=== PATIENT | female | born 1970 | race Hispanic/Latino ===

== ENCOUNTER → 2025-03-09 | Outpatient (CLI) | payer OTHER, SELFPAY ==
[~2025-03-09] MED LIST: ASPI-1005 PO; METO50TA9 PO
--- NOTE | 2025-03-10 06:23 | HMCIMG ---
EXAMINATION: ULTRASOUND OF THE RETROPERITONEUM. CLINICAL HISTORY: Urinary crystals. COMPARISON: None. TECHNIQUE: Real-time grayscale ultrasound images of the kidneys. FINDINGS: The kidneys are normal in caliber, the right kidney measures 10.8 x 4.0 x 4.2 cm and the left kidney measures 9.6 x 5.3 x 4.1 cm in its craniocaudal, AP, and transverse dimensions respectively. There is normal renal cortical thickness, and cortical echogenicity. There is no renal calculus or hydronephrosis. The urinary bladder is minimally distended with normal wall thickness. There are no calculi in the urinary bladder. IMPRESSION: No significant abnormality. /Solo
== END | disposition home or self-care (01) ==
LOC: RAH 11:00
PROVIDERS: ATTEND Student in an Organized Health Care Education/Training Program
DX: R82.998 Other abnormal findings in urine (principal)
CPT/HCPCS: 76770

== ENCOUNTER 2025-05-14 05:37 | Day surgery (SDC) | payer SELFPAY ==
[~2025-05-14] VITALS: Ht 154.9 cm; Wt 128.8 kg
[2025-05-14] VITALS (10 sets, daily range): BP systolic 105–123; BP diastolic 62–71; PULSE 52–64; RESP 14–17; TEMP 97.3–98.4
[~2025-05-14 05:37] MED LIST changes: +BUPR300T53 PO; +LOSA25TA41 PO; +METO-408 PO; -METO50TA9 PO; +SEMA1PEN3 SQ; +TRAZ-185 PO; +TYLENOL ARTHRITIS PO
[2025-05-14] MEDS ORDERED: CALC625T PO (06:48)
[2025-05-14] MEDS ORDERED: LIDOCAINE HCL 1% 20 ML VIAL ONE (07:18)
--- NOTE | 2025-05-14 08:45 | NUR ---
Full and complete discharge instructions given to Patient and Family both verbally and in writing. Explained GI procedure precautions and follow up. All questions answered. PIV removed with catheter tip intact. Family at bedside appearing supportive. W/C to POV with Family to home
[2025-05-14] MEDS: 0.9%NACL 1000ML 1,000 ML IV ONE (09:56)
== END 2025-05-14 08:40 | disposition home or self-care (01) ==
LOC: ENDO 05:37 → DAH 05:37 → ENDO 08:40
PROVIDERS: ATTEND Internal Medicine Gastroenterology
DX: K92.1 Melena (principal); K29.70 Gastritis, unspecified, without bleeding; K57.30 Diverticulosis of large intestine without perforation or abscess without bleeding; B96.81 Helicobacter pylori [H. pylori] as the cause of diseases classified elsewhere; R12 Heartburn; R14.2 Eructation; I10 Essential (primary) hypertension; E66.9 Obesity, unspecified; Z68.43 Body mass index [BMI] 50.0-59.9, adult; Z86.0100 Personal history of colon polyps, unspecified; Z79.82 Long term (current) use of aspirin; Z79.899 Other long term (current) drug therapy
CPT/HCPCS: 43239; 45378; J7030 ×2; J2704; A4620; A4215 ×2; A4223; A7002; A4222; A4221; A4663; A4606; J3490